=== PATIENT | female | born 1945 | race Caucasian/White ===

== ENCOUNTER → 2018-03-09 | Outpatient (CLI) | payer MEDICARE ==
[~2018-03-09] MED LIST: CALC1TAB87 PO; LEVO25TA4 PO; METO1TAB42 PO; MULT1TAB PO; VITA400C28 PO
[2018-03-09 14:59] LABS: AUTOMATED NEUTROPHIL # 3.8 TH/MM3 (1.8-7.7); BASOPHIL % 0.5 % (0.0-2.0); EOSINOPHIL # 0.1 TH/MM3 (0-0.4); EOSINOPHIL % 1.1 % (0.0-4.0); HEMATOCRIT 42.3 % (35.0-46.0); HEMOGLOBIN 14.6 GM/DL (11.6-15.3); LYMPH % 29.2 % (9.0-44.0); MEAN CELL VOLUME 92.6 FL (80.0-100.0); MEAN CORPUSCULAR HEMOGLOBIN 32.1 PG (27.0-34.0); MEAN CORPUSCULAR HGB CONC 34.6 % (32.0-36.0); MEAN PLATELET VOLUME 7.8 FL (7.0-11.0); NEUT % 55.2 % (16.0-70.0); PLATELET COUNT 229 TH/MM3 (150-450); RED BLOOD COUNT 4.56 MIL/MM3 (4.00-5.30); RED CELL DISTRIBUTION WIDTH 13.5 % (11.6-17.2); WHITE BLOOD COUNT 6.9 TH/MM3 (4.0-11.0)
[2018-03-09 15:34] LABS: ALBUMIN 4.1 GM/DL (3.4-5.0); ALT (GPT) 21 U/L (10-53); AST (GOT) 16 U/L (15-37); BICARBONATE 31.7 MEQ/L (21.0-32.0); BLOOD UREA NITROGEN 16 MG/DL (7-18); CALCIUM 9.5 MG/DL (8.5-10.1); CHLORIDE 104 MEQ/L (98-107); CREATININE 0.76 MG/DL (0.50-1.00); GLOMERULAR FILTRATION RATE 75 ML/MIN (>89); GLUCOSE,FASTING 101 MG/DL (74-99); SODIUM (NA) 143 MEQ/L (136-145)
[2018-03-09 15:36] LABS: ALKALINE PHOSPHATASE 93 U/L (45-117); TOTAL BILIRUBIN ADULT 0.6 MG/DL (0.2-1.0)
[2018-03-09 15:37] LABS: BILIRUBIN, URINE NEG (NEG); BLOOD, URINE NEG (NEG); GLUCOSE,URINE NEG (NEG); KETONE, URINE NEG (NEG); NITRITE,URINE NEG (NEG); PH, URINE 7.5 (5.0-8.5); SQUAMOUS EPITHELIAL CELL URINE 11 /hpf (0-5); URINE COLOR LIGHT-YELLOW (YELLW/STRAW); URINE LEUKOCYTE ESTERASE MOD (NEG)
--- NOTE | 2018-03-10 08:50 | EKG ---
Date Performed: 03/09/2018 Time Performed: 14:08:43 PTAGE: 72 years EKG: SINUS BRADYCARDIA LOW QRS VOLTAGE IN PRECORDIAL LEADS BORDERLINE ECG NO PREVIOUS TRACING DOCTOR: Nico Johnston Interpretating Date/Time 03/10/2018 08:46:59
== END ==
LOC: CPRE 13:53
PROVIDERS: ATTEND Obstetrics & Gynecology Gynecology
DX: Z01.812 Encounter for preprocedural laboratory examination (principal); Z01.810 Encounter for preprocedural cardiovascular examination; N99.3 Prolapse of vaginal vault after hysterectomy; R94.31 Abnormal electrocardiogram [ECG] [EKG]
CPT/HCPCS: 36415; 80053; 81001; 85025; 93005

== ENCOUNTER → 2018-03-17 | Day surgery (SDC) | payer MEDICARE ==
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
[~2018-03-17] VITALS: Ht 154.9 cm; Wt 57.9 kg
[~2018-03-17] MED LIST changes: +CHLORHEXIDINE GLUCONATE 2 % 1 PACK (2 CLOTHS) TOPICAL PRN; +DEXAMETHASONE SOD PHOS 4 MG/ML VIAL IV ONE; +DO NOT ADM ANY ANTICOAGULANT DRUGS PRN; +EPINEPHrine HCL (1:1000) 1 MG/ML VIAL IV ONE; +KETOROLAC TROMETHAMINE 30 MG/ML (IVP) VIAL IV PUSH ONE; +KETOROLAC TROMETHAMINE 60 MG/2 ML (IM) VIAL IM PRN; +LACTATED RINGER'S 1000 ML IV PRN; +LIDOCAINE 1%/EPINEPHrine 1:100,000 SOLN 50 ML VIAL ONE; +LIDOCAINE HCL 1% PF 5 ML SYRINGE OTHER ONE; +METOPROLOL TARTRATE 25 MG TAB PO PRN; +ONDANSETRON HCL 4 MG/2 ML VIAL IV PUSH ONE; +ONDANSETRON HCL 4 MG/2 ML VIAL IV PUSH PRN; +POVIDONE IODINE 5% (ANTISEPSIS KIT) 4 APPLICATIONS EACH NARE PRN; +PROPOFOL 200 MG/20 ML AMP IV ONE; +SODIUM CHLORID 0.9% 500 ML IV PRN; +ceFAZolin 2 GM PREMIX 50 ML ONE; +ceFAZolin 2 GM in NS 100 ML IV SCH; +ePHEDrine/NS 25 MG/5 ML SYRINGE IV ONE; +fentaNYL CITRATE 250 MCG/5 ML AMP ONE; +traMADol HCL 50 MG TAB PO PRN
--- NOTE | 2018-03-17 12:18 | MP ---
cc: Davide Fuller MD DATE OF OPERATION: 03/17/2018 PREOPERATIVE DIAGNOSIS: Vaginal vault prolapse following prior hysterectomy, code N99.3. POSTOPERATIVE DIAGNOSES: Vaginal vault prolapse following prior hysterectomy with rectocele, code N81.6. PROCEDURE PERFORMED: 1. Posterior repair, code 03840. 2. Sacrospinous ligament fixation of the vaginal apex to the right sacrospinous ligament, code 95767. SURGEON: Dr. Davide Fuller. ANESTHESIA: Laryngeal mask. BLOOD LOSS: 20 mL URINE OUTPUT: 300 mL FLUIDS: 5 mL crystalloid. ENERGY TRADING ANALYST: [employer] staff x 2. FINDINGS: External genitalia poorly estrogenized. POP-Q score Aa is +3. Ap is +3. Point C is +6. Total vaginal length of 10. Genital hiatus is 6. Perineal body is 5. Rectal exam is normal pre and post repair. Post-repair Aa is -3. Ap is -3. Point C is -8. Total vaginal length is 8. Genital hiatus is 6. Perineal body is 5. SPECIMENS: None. COMPLICATIONS: None. DISPOSITION: Recovery room, stable. COUNTS: Needle and sponge count correct. DRAINS: Rasmussen catheter. ANTIBIOTIC PROPHYLAXIS: Ancef 2 grams. DVT PROPHYLAXIS: Sequential compression device. TIMEOUT PROCEDURE AND IDENTIFICATION: Per protocol. INDICATIONS FOR PROCEDURE: The patient with stage IV pelvic organ prolapse and opted for repair, was hopeful to avoid mesh repair and opted for a vaginal approach. She did want to maintain sexual function, so obliterative procedure was not considered. PROCEDURE: The patient was taken to the operative theater, identified, prepped and draped in a fashion appropriate for the planned procedure. The patient was positioned in dorsal lithotomy position with careful attention to placement of the patient's legs in stirrups to avoid undue stress to sensitive neurovascular structures. Rasmussen catheter was placed. Methylene blue was instilled into the bladder. Patient's exam was most consistent with vaginal vault prolapse following prior hysterectomy. She had a significant distortion of anatomy, but we were able to identify the apex, marked this with a suture. We then made an incision in the perineal body, take this up to the apex with careful dissection, careful to avoid the rectum. One finger in the rectum to give us traction and countertraction and to avoid damage to the rectum. The perirectal space on the right was identified. There was significant scarring between the muscularis of the rectum and the vaginal muscularis. This required careful dissection to avoid damage to underlying contents and structures, but we were able to identify the perirectal space with certainty, made sure the rectum was clear. We then identified the sacrospinous ligament. Capio device was used to place a suture approximately 2 fingerbreadths from the ischial spine. The first 2 sutures did not have a very good purchase so we went up a little higher on the coccygeus fascia to actually get better support structure. We then attached the Prolene suture to the apex and affixed it with a gregorio stitch. Posterior repair was performed in standard fashion with delayed absorbable suture. Vaginal mucosa was trimmed. Vaginal mucosa was closed without complication. We then cinched down the suspension suture on the right and this elevated the apex with some minor deviation to the right. Remainder of the repair was performed without complication. Modified perineoplasty was performed to decrease some of the genital hiatus. Rectal exam confirmed no damage to the rectum and no suture bridge. The patient tolerated the procedure well and was taken to recovery in stable condition. If this repair should fail, the patient's tissues are somewhat attenuated and I think she would have to most likely at that point move on with mesh sacral colpopexy. MD JETT Galeano/ELIZ , 11:37 AM , 12:17 PM
[2018-03-17 12:50] VITALS: BP 150/70; PULSE 84; RESP 18; TEMP 96.4; O2SAT 96
== END | disposition home or self-care (01) ==
LOC: HSDC 07:23 → EDUNIT# 09:30
PROVIDERS: ATTEND Obstetrics & Gynecology Gynecology
DX: N99.3 Prolapse of vaginal vault after hysterectomy (principal); H54.8 Legal blindness, as defined in USA; I10 Essential (primary) hypertension; E78.00 Pure hypercholesterolemia, unspecified; E03.9 Hypothyroidism, unspecified; G40.909 Epilepsy, unspecified, not intractable, without status epilepticus; Z87.820 Personal history of traumatic brain injury
CPT/HCPCS: 00840; 57250; 57282; J0171; J0690; J1100; J1885; J2405; J3010; J7120